=== PATIENT | male | born 1955 | race Caucasian/White ===

== ENCOUNTER 2017-12-30 09:47 | Emergency (ER) | payer SELFPAY ==
[~2017-12-30] VITALS: Ht 175.3 cm; Wt 90.9 kg
[2017-12-30 10:49] VITALS: BP 126/86
== END 2017-12-30 11:43 | disposition home or self-care (01) ==
LOC: EMS 09:50
DX: K04.7 Periapical abscess without sinus (principal); F17.210 Nicotine dependence, cigarettes, uncomplicated
CPT/HCPCS: 41800; 99283; 99406